=== PATIENT | female | born 1960 | race Caucasian/White ===

== ENCOUNTER 2018-04-16 14:33 | Outpatient (CLI) | payer OTHER | END 2018-04-16 14:37 | disposition home or self-care (01) | LOC: MAMO-SONO 14:33 | DX: N60.11 Diffuse cystic mastopathy of right breast (principal) ==

== ENCOUNTER → 2019-04-18 | Outpatient (CLI) | payer OTHER | END | disposition home or self-care (01) | LOC: MAMO-SONO 09:15 | DX: Z12.31 Encounter for screening mammogram for malignant neoplasm of breast (principal); Z87.898 Personal history of other specified conditions; N60.11 Diffuse cystic mastopathy of right breast ==

== ENCOUNTER 2020-05-27 08:25 | Outpatient (CLI) | payer OTHER | END 2020-05-27 08:38 | disposition home or self-care (01) | LOC: MAMO-SONO 08:25 | PROVIDERS: ATTEND Obstetrics & Gynecology | DX: Z12.31 Encounter for screening mammogram for malignant neoplasm of breast (principal); N64.59 Other signs and symptoms in breast; N60.11 Diffuse cystic mastopathy of right breast ==

== ENCOUNTER 2021-06-21 08:18 | Outpatient (CLI) | payer OTHER | END 2021-06-21 08:23 | disposition home or self-care (01) | LOC: MAMO-SONO 08:18 | PROVIDERS: ATTEND Obstetrics & Gynecology | DX: N60.11 Diffuse cystic mastopathy of right breast (principal); Z12.31 Encounter for screening mammogram for malignant neoplasm of breast ==

== ENCOUNTER 2022-06-23 10:56 | Outpatient (CLI) | payer OTHER | END 2022-06-23 11:03 | disposition home or self-care (01) | LOC: MAMO-SONO 10:56 | PROVIDERS: ATTEND Obstetrics & Gynecology | DX: Z12.31 Encounter for screening mammogram for malignant neoplasm of breast (principal); N60.11 Diffuse cystic mastopathy of right breast ==

== ENCOUNTER 2024-06-25 15:21 | Outpatient (CLI) | payer OTHER | END 2024-06-25 15:28 | disposition home or self-care (01) | LOC: MAMO-SONO 15:21 | PROVIDERS: ATTEND Obstetrics & Gynecology | DX: N60.11 Diffuse cystic mastopathy of right breast (principal); Z12.31 Encounter for screening mammogram for malignant neoplasm of breast ==